=== PATIENT | male | born 1980 | race Hispanic/Latino ===

== ENCOUNTER 2021-12-02 06:36 | Observation (INO) | payer OTHER ==
[2021-11-28 10:43] LABS: BASOPHILS % (AUTO) 0.6 % (0.0-5.0); EOSINOPHILS % (AUTO) 2.9 % (0.0-8.0); HEMATOCRIT 40.6 % (42-54); LYMPHOCYTES % (AUTO) 33.8 % (21.0-51.0); MEAN CORPUSCULAR HEMOGLOBIN 28.8 pg (27.0-33.0); MEAN CORPUSCULAR VOLUME 87.3 fL (79-99); MONOCYTES % (AUTO) 9.4 % (3.0-13.0); NEUTROPHILS % (AUTO) 53.1 % (40.0-77.0); PLATELET COUNT (AUTO) 215 K/uL (130-400); RED BLOOD CELL COUNT(AUTO) 4.65 MIL/uL (4.50-6.20); RED CELL DISTRIBUTION WIDTH 13.3 % (11.0-15.5); WHITE BLOOD COUNT (AUTO) 4.9 K/uL (4.8-10.8)
[2021-11-28 10:51] LABS: CREATININE 0.9 mg/dL (0.5-1.5); POTASSIUM 3.9 mmol/L (3.5-5.1)
[2021-12-01 12:16] VITALS: BP 129/67
[~2021-12-02] VITALS: Ht 165.1 cm; Wt 82.0 kg
[2021-12-02] VITALS (25 sets, daily range): BP systolic 110–145; BP diastolic 44–84
[2021-12-02] MEDS: CEFAZOLIN SODIUM 1 GM VIAL IVP SCH ×4 (06:00→21:13)
[~2021-12-02 06:36] MED LIST: 0.9% NACL 500ML IV.SOLN 500 ML IV SCH; MVIT PO
[2021-12-02] MEDS ORDERED: LACTATED RINGERS 1000ML 1,000 ML IV ONE (06:45)
[2021-12-02] MEDS ORDERED: NEOSTIGMINE 5MG/5ML SYR IV ONE (08:55)
[2021-12-02] MEDS ORDERED: DEXAMETHASONE SOD PHOSPHATE 10MG/ML 1ML VIAL ONE (08:55)
[2021-12-02] MEDS ORDERED: GLYCOPYRROLATE 1 MG/5 ML SYRINGE ONE (08:55)
[2021-12-02] MEDS ORDERED: SUCCINYLCHOLINE CHLORIDE 20 MG/ML 10 ML VIAL ONE (08:55)
[2021-12-02] MEDS ORDERED: LIDOCAINE PF 100MG/5ML (2%) SYRINGE 5ML ONE (08:55)
[2021-12-02] MEDS ORDERED: PROPOFOL 10 MG/ML 20ML VIAL IV ONE (08:55)
[2021-12-02] MEDS ORDERED: ONDANSETRON 4MG INJ ONE (08:55)
[2021-12-02] MEDS ORDERED: MIDAZOLAM HCL 1 MG/ML 2ML VIAL ONE (08:55)
[2021-12-02] MEDS ORDERED: ROCURONIUM 10MG/1ML SYR 10 MG/ML ML ONE ×2 (08:56→11:11)
[2021-12-02] MEDS ORDERED: FENTANYL CITRATE PF 50 MCG/1 ML 2ML VIAL ONE (08:56)
[2021-12-02] MEDS ORDERED: BUPIVACAINE/PF 0.25% 30ML VIAL IJ ONE (08:57)
[2021-12-02] MEDS ORDERED: BUPIVACAINE/EPI/PF 0.25% 50 ML VIAL IJ ONE (11:30)
[2021-12-02] MEDS ORDERED: MEPERIDINE-PF 25 MG/ML SYG ONE (12:24)
[2021-12-02] MEDS: MORPHINE 4 MG SYG IVP PRN (16:14)
[2021-12-03 00:23] VITALS: BP 127/72
[2021-12-03 03:36] VITALS: BP 130/62
[2021-12-03 05:43] LABS: BASOPHILS % (AUTO) 0.1 % (0.0-5.0); HEMATOCRIT 36.9 % (42-54); LYMPHOCYTES % (AUTO) 12.8 % (21.0-51.0); MEAN CORPUSCULAR HEMOGLOBIN 28.6 pg (27.0-33.0); MEAN CORPUSCULAR HGB CONC 33.6 g/dL (32.0-36.0); MEAN CORPUSCULAR VOLUME 85.2 fL (79-99); NEUTROPHILS % (AUTO) 78.6 % (40.0-77.0); PLATELET COUNT (AUTO) 226 K/uL (130-400); RED BLOOD CELL COUNT(AUTO) 4.33 MIL/uL (4.50-6.20); RED CELL DISTRIBUTION WIDTH 13.2 % (11.0-15.5); WHITE BLOOD COUNT (AUTO) 11.5 K/uL (4.8-10.8)
[2021-12-03 08:00] VITALS: BP 127/78
[2021-12-03] MEDS: ONDANSETRON 4MG INJ IVP PRN ×2 (09:06→09:26)
[2021-12-03] MEDS: MORPHINE 4 MG SYG IVP PRN (09:07)
[2021-12-03 12:00] VITALS: BP 126/80
== END 2021-12-03 15:25 | disposition home or self-care (01) ==
LOC: DAH 06:36 → DAHIP 06:37 → 3CH 13:48
PROVIDERS: ADMIT Surgery; ATTEND Surgery
DX: K40.91 Unilateral inguinal hernia, without obstruction or gangrene, recurrent (principal); Z20.822 Contact with and (suspected) exposure to COVID-19; L92.8 Other granulomatous disorders of the skin and subcutaneous tissue; D17.9 Benign lipomatous neoplasm, unspecified; Z87.442 Personal history of urinary calculi; Z79.899 Other long term (current) drug therapy
CPT/HCPCS: 54520; 49520; 80048; 85025 ×2; 87426; 36415 ×2; 96374; 96376 ×2; 96375 ×2; A6260; G0378 ×28; G0379; J7030; A4452; J7120; J3010; J0690 ×3; J3490 ×3; J1100; J2710; J0330; J2001; J2250; J2704; J2405 ×2; J2270 ×2; J2175; A4215; A4223; A4222; A4221; A4663; A4600